=== PATIENT | male | born 1945 | race Caucasian/White ===

== ENCOUNTER → 2017-02-02 | Outpatient (CLI) | payer OTHER | LOC: BHFA 09:30 | PROVIDERS: ATTEND Internal Medicine Cardiovascular Disease | DX: R94.31 Abnormal electrocardiogram [ECG] [EKG] (principal); I25.10 Atherosclerotic heart disease of native coronary artery without angina pectoris ==

== ENCOUNTER 2017-02-03 08:03 | Day surgery (SDC) | payer OTHER ==
[2017-02-03] MEDS ORDERED: FAMOTIDINE 20 MG TAB PO ONE (08:05)
[2017-02-03] MEDS ORDERED: DIAZEPAM 5 MG TAB PO ONE (08:05)
[2017-02-03] MEDS ORDERED: diphenhydrAMINE 25 MG CAP PO ONE ×2 (08:05→08:42)
[2017-02-03] MEDS ORDERED: NS 1,000 ML IV ONE (08:05)
[2017-02-03] MEDS ORDERED: ASPIRIN EC 325 MG TAB PO ONE ×2 (08:05→08:43)
--- NOTE | 2017-02-03 08:27 | CPEKG ---
Heart Rate: 51 RR Interval: 1176 P-R Interval: 212 QRSD Interval: 116 QT Interval: 452 QTC Interval: 417 P [place]: 63 QRS [place]: -33 T Wave [place]: 69 EKG Severity - ABNORMAL ECG - EKG Impression: SINUS RHYTHM EKG Impression: NONSPECIFIC INTRAVENTRICULAR CONDUCTION DELAY EKG Impression: LEFT VENTRICULAR HYPERTROPHY EKG Impression: ANTERIOR Q WAVES, POSSIBLY DUE TO LVH EKG Impression: FIRST DEGREE AVB EKG Impression: THE IVCD IS NEW IN COMPARISON TO PRIOR ECG Electronically Signed By: Les Cabral 04-Feb-2017 09:00:29
[2017-02-03] MEDS ORDERED: DIAZEPAM 5 MG TAB ONE (08:43)
[2017-02-03] MEDS ORDERED: FAMOTIDINE 20 MG TAB ONE (08:43)
[2017-02-03 08:52] LABS: % IMMATURE GRANULYOCYTES 0.2 % (0.0-1.1); ABSOLUTE IMMATURE GRANULOCYTES 0.01 10^3/uL (0.00-0.10); ADD DIFF? NO; ADD MORPH? NO; ADD SCAN? NO; ATYPICAL LYMPHOCYTE FLAG 10 (0-99); FRAGMENT RBC FLAG 70 (0-99); HEMATOCRIT 30.2 % (40.0-51.0); HEMOGLOBIN 9.4 g/dL (13.7-17.5); LEFT SHIFT FLG 0 (0-99); LIPEMIA HEMOLYSIS FLAG 80 (0-99); MEAN CELL HEMOGLOBIN 23.2 pg (27.9-34.1); MEAN CELL HEMOGLOBIN CONCENTR. 31.1 g/dL (32.4-36.7); MEAN CELL VOLUME 74.4 fL (81.5-99.8); MEAN PLATELET VOLUME 10.9 fL (8.7-11.7); PLATELET CLUMPS FLAG 10 (0-99); PLATELET COUNT 336 10^3/uL (150-400); RED BLOOD CELL COUNT 4.06 10^6/uL (4.40-6.38); RED CELL DISTRIBUTION WIDTH 18.7 % (11.5-15.2)
[2017-02-03 09:10] LABS: INR 1.09 (0.83-1.16)
[2017-02-03] MEDS ORDERED: IOPAMIDOL (ISOVUE 370) 100 ML BTL IV ONE (09:15)
[2017-02-03] MEDS ORDERED: LIDOCAINE 1% 30 ML SDV ONE (09:15)
[2017-02-03] MEDS ORDERED: fentaNYL 100 MCG/2 ML INJ ONE (09:29)
[2017-02-03] MEDS ORDERED: MIDAZOLAM 2 MG/2 ML VIAL ONE (09:30)
[2017-02-03] MEDS ORDERED: VERAPAMIL 5 MG/2 ML VIAL ONE (09:47)
[2017-02-03] MEDS ORDERED: HEPARIN 10,000 UNIT/10 ML MDV ONE (09:47)
[2017-02-03 09:49] LABS: ANION GAP 9 mEq/L (8-16); CALCIUM 9.1 mg/dL (8.5-10.4); CARBON DIOXIDE 26 mEq/l (22-31); CHLORIDE 107 mEq/L (97-110); CHOLESTEROL 143 mg/dL (140-220); CHOLESTEROL/HDL RATIO 3.11 RATIO (1.00-4.97); GLOMERULAR FILTRATION RATE > 60; GLUCOSE 92 mg/dL (70-100); HIGH DENSITY LIPOPROTEIN 46 mg/dL (40-65); LOW DENSITY LIPOPROTEIN 83 mg/dL (80-100); NON-HIGH DENSITY LIPOPROTEIN 97 mg/dL (90-129); POTASSIUM 4.4 mEq/L (3.5-5.2); SODIUM 142 mEq/L (134-144); TRIGLYCERIDE 72 mg/dL (40-150); VERY LOW DENSITY LIPOPROTEINS 14 mg/dL (8-25)
[2017-02-03 09:58] LABS: % SATURATION 5 % (20-55); TOTAL IRON BINDING CAPACITY 422 ug/dL (260-490)
[2017-02-03 10:23] LABS: FERRITIN - BCH 5.7 ng/mL (17.9-464.0)
--- NOTE | 2017-02-03 10:27 | PDDXCAT ---
Diagnostic Cath Note - . Date: 02/03/17 Intervention: None *Procedure Indication: Progressive dyspnea on exertion (NYHA III symptoms), CCS III angina , no stress test, known coronary artery disease on the basis of a positive calcium score. Access: right radial artery (a plethysmography trace-assisted Kana's test was used to document dual artery supply to the hand and index finger prior to access ). Procedure: 1. selective coronary angiography 2. left heart catheterization 3. left ventriculogram *Materials Selective Coronary Angiography size: 5F Selective Coronary Materials: JL3.5, JR4.0, pigtail *Findings-Selective coronary angiography LM: The left main is ~6 mm in size and bifurcates into an LAD and circumflex system. There is no significant or flow limiting disease identified. LAD: The proximal LAD is ~3.25 mm in size. There are luminal irregularities in the proximal and mid LAD with maximal luminal stenosis of 15%. There is no evidence of flow-limiting coronary artery disease with MARIO III flow throughout. LCX: The proximal left circumflex is ~3 mm in size without evidence of flow- limiting coronary disease. There is non-flow limiting calcification consistent with atherosclerosis. RCA: The right coronary artery is dominant (gives rise to PDA and PLV branches) and ~3 mm in size. There is no evidence of flow-limiting coronary artery disease with MARIO III flow throughout. *Findings-Left Heart Catheterization LVEDP: 15 mmHg Ejection Fraction: 65% Wall motion analysis: There are no wall motion abnormalities identified on left ventriculogram. The visualized portion of the thoracic aorta revealed three sinuses of Valsalva and is the upper limits of normal in size. There was no evidence of nate aneurysm or dissection. Incidentally noted is a large rounded extracardiac mass. CT of the chest in January of 2016 revealed this is a hiatal hernia. *Summary Complications: None Estimated blood loss: <50ml Closure method: TR band arteriotomy repair Assessment: 1. [place] vessel non-flow limiting coronary artery disease with maximal luminal stenosis of 15% in the proximal and mid LAD. There was no flow-limiting disease with MARIO III flow throughout the right-dominant coronary system. 2. Normal ejection fraction of 65% with no wall motion abnormalities identified on left ventriculogram. 3. Incidentally noted on left ventriculogram is a large, round retro cardiac mass. CT of the chest performed in January of 2016 revealed a large hiatal hernia. There were also scattered non-calcified pulmonary nodules and follow up CT was recommended in 12 months (the patient has a history of smoking). I would like to repeat this study given the patient's progressive dyspnea on exertion. Patient Problems: Problems Problem Status Onset Bronchitis Acute Hypoxia Acute TIA (transient ischemic attack) Acute
[2017-02-03] MEDS ORDERED: HYDROCODONE/APAP 5/325 TAB PO PRN (10:58)
[2017-02-03] MEDS ORDERED: OXYCODONE/APAP 5/325 TAB PO PRN (10:58)
[2017-02-03] MEDS ORDERED: ONDANSETRON 4 MG/2 ML VIAL IVP PRN (10:58)
[2017-02-03] MEDS ORDERED: ATROPINE SULFATE 1 MG/10 ML SYR IVP PRN (10:58)
[2017-02-03] MEDS ORDERED: NITROGLYCERIN 0.4 MG BTL SL PRN (10:58)
== END 2017-02-03 14:00 | disposition home or self-care (01) ==
LOC: FCATH 08:03
PROVIDERS: ATTEND Internal Medicine Cardiovascular Disease
PROC: 4A023N7 Measurement of Cardiac Sampling and Pressure, Left Heart, Percutaneous Approach (ICD-10-PCS; principal; 2017-02-03)
PROC: B2151ZZ Fluoroscopy of Left Heart using Low Osmolar Contrast (ICD-10-PCS; principal; 2017-02-03)
PROC: B2111ZZ Fluoroscopy of Multiple Coronary Arteries using Low Osmolar Contrast (ICD-10-PCS; principal; 2017-02-03)
DX: R06.09 Other forms of dyspnea (principal); I25.10 Atherosclerotic heart disease of native coronary artery without angina pectoris; K44.9 Diaphragmatic hernia without obstruction or gangrene; D64.9 Anemia, unspecified; E03.9 Hypothyroidism, unspecified; Z87.891 Personal history of nicotine dependence
CPT/HCPCS: 71250; 93005; 93458; C1769; 84466-90; 84481-90; J1644; J2250; J3010; Q9967

== ENCOUNTER 2018-05-09 06:11 | Inpatient (IN) | payer OTHER ==
[~2018-05-09 06:11] MED LIST: LR 1,000 ML IV ONE; ceFAZolin 2 GM/SWFI 2 GM/20 ML SYR IVP ONE
[2018-05-09] MEDS ORDERED: CEFAZOLIN 2 GM/DEXTROSE/100 ML BAG IV ONE (06:12)
[2018-05-09] MEDS ORDERED: ceFAZolin 2 GM/DEXTROSE 100 ML IV ONE (06:30)
[2018-05-09] MEDS ORDERED: BUPIVACAINE 0.25% 30 ML SDV ONE (06:55)
[2018-05-09] MEDS ORDERED: HEPARIN 1000 UNIT/1 ML MDV ONE (06:55)
[2018-05-09] MEDS ORDERED: ceFAZolin 1 GM/5 ML SYR ONE (06:56)
--- NOTE | 2018-05-09 07:51 | PDANEPAE ---
ANE History of Present Illness Jrei Fundoplication ANE Past Medical History - Cardiovascular History Hx Hypertension: No Hx Arrhythmias: No Hx Chest Pain: No Hx Coronary Artery / Peripheral Vascular Disease: Yes Hx CHF / Valvular Disease: No Hx Palpitations: No Cardiovascular History Comment: cad. cardiac cath 02/03/17. seen at [facility] - Pulmonary History Hx COPD: No Hx Asthma/Reactive Airway Disease: No Hx Recent Upper Respiratory Infection: No Hx Oxygen in Use at Home: No Hx Sleep Apnea: No Sleep Apnea Screening Result - Last Documented: Negative - Neurologic History Hx Cerebrovascular Accident: No Hx Seizures: No Hx Dementia: No Neurologic History Comment: chronic back t12, l1-l2. from tree falling on him - Endocrine History Hx Diabetes: No Hypothyroid: No Obesity: no Endocrine History Comment: hypothyroidism- no medications currently - Renal History Hx Renal Disorders: Yes Renal History Comment: hx of bladder diverticulum - Liver History Hx Hepatic Disorders: No - Neurological & Psychiatric Hx Hx Neurological and Psychiatric Disorders: No - Cancer History Hx Cancer: No - Congenital Disorder History Hx Congenital Disorders: No - GI History Hx Gastrointestinal Disorders: Yes Gastrointestinal History Comment: reflux - Other Health History Other Health History: wears glasses - Chronic Pain History Chronic Pain: Yes (back, on oxycodone for 30 years) - Surgical History Prior Surgeries: cardiac cath 02/03/17. right inguinal hernia repair. bladder diverticulum repair ANE Review of Systems Review of Systems: - Exercise capacity METS (RN): 3 METS ANE Patient History - Allergies Allergies/Adverse Reactions: cat dander Allergy (Verified 05/08/18 12:35) - Home Medications Home Medications: Multivitamins [Multivitamin (*)] 07/16/15 [Last Taken 05/06/18] oxyCODONE IR [Oxycodone Ir (*)] 07/16/15 [Last Taken 05/09/18] Aspirin [Aspirin 325 mg (*)] 01/29/16 [Last Taken 05/03/18] Ranitidine HCl [Zantac] 02/02/16 [Last Taken 05/08/18] Ferrous Sulfate [Ferrous Sulf 325 MG (*)] 05/08/18 [Last Taken 05/08/18] Metoprolol Succinate PRN 05/09/18 [Last Taken 05/08/18] - NPO status NPO Since - Liquids (Date): 05/08/18 NPO Since - Liquids (Time): 22:00 NPO Since - Solids (Date): 05/08/18 NPO Since - Solids (Time): 19:00 - Anes Hx Anes Hx: no prior problems - Smoking Hx Smoking Status: Former smoker Marijuana use: Yes - Alcohol Use Alcohol Use: None - Family Anes Hx Family Anes Hx: none Family Hx Anesthesia Complications: none ANE Labs/Vital Signs - Vital Signs Blood Pressure: 148/77 Heart Rate: 45 Respiratory Rate: 14 O2 Sat (%): 93 Height: 182.88 cm Weight: 66.6 kg ANE Physical Exam - Airway Neck exam: FROM Mallampati Score: Class 1 Mouth exam: normal dental/mouth exam - Pulmonary Pulmonary: clear to auscultation - Cardiovascular Cardiovascular: regular rate and rhythym - ASA Status ASA Status: III ANE Anesthesia Plan Anesthesia Plan: general endotracheal anesthesia (Possible thoracic epidural analgesia, to be placed postop, if needed, discussed.)
--- NOTE | 2018-05-09 07:52 | PDHPUP ---
History & Physical Update H&P update statement: This history and physical update is based on an assessment of the patient which was completed after admission or registration (within 24 hours), but prior to the surgery/procedure. H&P update: H&P reviewed & patient examined, no change in patient's condition since H&P completed
[2018-05-09] MEDS ORDERED: MIDAZOLAM 2 MG/2 ML VIAL IVP ONE (08:00)
[2018-05-09] MEDS ORDERED: PROPOFOL 200 MG/20 ML VIAL ONE ×2 (08:06→08:30)
[2018-05-09] MEDS ORDERED: fentaNYL 250 MCG/5 ML INJ ONE (08:06)
[2018-05-09] MEDS ORDERED: DEXAMETHASONE 4 MG/ML VIAL ONE (08:07)
[2018-05-09] MEDS ORDERED: ROCURONIUM 50 MG/5 ML VIAL ONE (08:07)
[2018-05-09] MEDS ORDERED: RANITIDINE 50 MG/2 ML VIAL ONE (08:08)
[2018-05-09] MEDS ORDERED: ONDANSETRON 4 MG/2 ML VIAL ONE ×2 (10:00→10:39)
[2018-05-09] MEDS ORDERED: NALOXONE HCL 0.4 MG/ML INJ IVP PRN (10:02)
[2018-05-09] MEDS ORDERED: fentaNYL 100 MCG/2 ML INJ IVP PRN (10:02)
[2018-05-09] MEDS ORDERED: ONDANSETRON 4 MG/2 ML VIAL IVP PRN ×2 (10:02→10:21)
[2018-05-09] MEDS ORDERED: SUGAMMADEX SODIUM 200 MG/2 ML VIAL IVP ONE (10:10)
--- NOTE | 2018-05-09 10:20 | POSTOPPROG ---
Post Op Note Date of Operation: 05/09/18 Surgeon: Anmol Miguel [place] Operator: Nai Caraballo Anesthesiologist: Matthew Billings Anesthesia: GET(General Endotracheal) Pre-op Diagnosis: large hiatal hernia, SOB Post-op Diagnosis: same Procedure: lap hiatal hernia repair c Jeri fundo., mesh, and omental patch Findings: 2/3 of stomach in chest, large hernia, tearing of diaphragm requiring mesh Inf/Abcess present in the surg proc area at time of surgery?: No EBL: Minimal Complications: none Specimen(s): none
[2018-05-09] MEDS ORDERED: HYDROmorphONE/DILAUDID 1 MG/ML INJ IVP PRN (10:21)
[2018-05-09] MEDS ORDERED: fentaNYL 100 MCG/2 ML INJ ONE (10:26)
[2018-05-09] MEDS ORDERED: HYDROmorphONE/DILAUDID 1 MG/ML INJ ONE (10:26)
[2018-05-09] MEDS: HYDROmorphONE/DILAUDID 1 MG/ML INJ IVP PRN ×2 (10:28→11:00)
[2018-05-09] MEDS ORDERED: D5W 1/2 NS 1,000 ML IV SCH (10:30)
[2018-05-09] MEDS ORDERED: OXYCODONE/APAP 5/325 TAB ONE (11:04)
[2018-05-09] MEDS ORDERED: PROMETHAZINE HCL 25 MG/ML INJ ONE (11:12)
[2018-05-09] MEDS: PROMETHAZINE HCL 25 MG/ML INJ IVP PRN ×2 (11:15→11:28)
[2018-05-09] MEDS: FAMOTIDINE 20 MG/NACL 50 ML IV SCH ×2 (12:12→20:21)
--- NOTE | 2018-05-09 13:09 | POSTANESTH ---
Post Anesthetic Evaluation Cardiovascular Status: Similar to Pre-Op Cond Respiratory Status: Normal, Stable, Other, See Comment Level of Consciousness/Mental Status: Can Participate in Eval Pain Control: Adequate, Prn Tx Ordered Nausea/Vomiting Control: Adequate, Prn Tx Ordered Complications Possibly Related to Anesthesia: None Noted (Pt. with SQ emphysema , but breathing without difficulty.)
--- NOTE | 2018-05-09 13:11 | CPEKG ---
Heart Rate: 57 RR Interval: 1053 P-R Interval: 232 QRSD Interval: 132 QT Interval: 420 QTC Interval: 409 P [place]: 55 QRS [place]: -33 T Wave [place]: 135 EKG Severity - ABNORMAL ECG - EKG Impression: SINUS RHYTHM EKG Impression: FIRST DEGREE AV BLOCK EKG Impression: PROBABLE LEFT ATRIAL ABNORMALITY EKG Impression: LEFT BUNDLE BRANCH BLOCK Electronically Signed By: Kavon Jackson 09-May-2018 16:26:56
--- NOTE | 2018-05-09 16:20 | ASMTCASEMG ---
Living Arrangements What is your living Answers: Alone arrangement? Who do you live with? Type Of Residence What kind of residence do Answers: House you live in? Discharge Plan Comments Coordination Status Comments Notes: Patient is a 72yo single male who was admitted for surgery to correct a partially obstructed large hiatel hernia which creates shortness of breath. Patient has 2 addresses listed, one in [place] and a [address] in [place]. Patient does have 2 children. No therapies ordered at this time. D/C plan TBD. CM will follow. Date Signed: 05/09/2018 04:19 PM Electronically Signed By:Karyna Pedersen LCSW
--- NOTE | 2018-05-09 16:31 | SOAPPROG ---
SOAP Progress Note Assessment/Plan: Assessment/Plan: 72 Y M s/p lap hiatal hernia repair with annette fundoplication , mesh, and omental patch, POD#0. AFVSS. Pain controlled. Wounds intact. Tolerating clears. Dysphagia diet in am. Urinary retention. Acute on chronic problem. Patient has hx of bladder diverticulum and urinary issues after trauma followed by urology. 50cc uop. Bladder scan 268cc. Ok for pt to self catheterize if bladder scan >400cc. Dispo: pending. 05/09/18 16:29 Objective: Vital Signs Temp Pulse Resp BP Pulse Ox 36.7 C 67 20 145/73 H 97 05/09/18 16:00 05/09/18 16:00 05/09/18 16:00 05/09/18 16:00 05/09/18 16:00 05/08/18 05/09/18 05/10/18 05:59 05:59 05:59 Intake Total 1110 Output Total 50 Balance 1060 ICD10 Worksheet Patient Problems: Problems Problem Status Onset Bronchitis Acute Hypoxia Acute TIA (transient ischemic attack) Acute
[2018-05-09] MEDS: OXYCODONE/APAP 5/325 TAB PO PRN ×2 (16:58→17:49)
[2018-05-09] MEDS: CALCIUM CARBONATE 500 MG CHEWABLE TAB PO PRN (17:50)
[2018-05-09] MEDS: DOCUSATE SODIUM 100 MG CAP PO SCH (20:21)
[2018-05-10] MEDS: OXYCODONE/APAP 5/325 TAB PO PRN ×3 (05:12→19:49)
[2018-05-10] MEDS ORDERED: ASPIRIN 325 MG TAB PO PRN (07:40)
[2018-05-10] MEDS ORDERED: METOPROLOL TARTRATE 25 MG TAB PO PRN (07:40)
[2018-05-10] MEDS ORDERED: oxyCODONE IR 5 MG TAB PO PRN (07:40)
[2018-05-10] MEDS: DOCUSATE SODIUM 100 MG CAP PO SCH ×2 (08:41→19:49)
[2018-05-10] MEDS: FERROUS SULFATE 325 MG TAB PO SCH (08:41)
[2018-05-10] MEDS: CEPACOL LOZENGE PO PRN ×2 (09:28→15:53)
[2018-05-10] MEDS: MULTIVITAMINS 1 EACH TAB PO SCH (09:30)
--- NOTE | 2018-05-10 09:32 | SOAPPROG ---
SOAP Progress Note Assessment/Plan: Assessment/Plan: 72 Y M s/p lap hiatal hernia repair with annette fundoplication , mesh, and omental patch, POD#1. Soft diet. ST consult for dysphagia. Continue routine post op care. Dispo: pending. possibly later today, more likely tomorrow. S: sore throat. feels like it is difficult to drink water. O: alert, nad mmm ctab anteriorly rrr abd soft, inc cdi 05/10/18 09:31 Objective: Vital Signs Temp Pulse Resp BP Pulse Ox 36.8 C 66 16 120/67 90 L 05/10/18 07:56 05/10/18 07:56 05/10/18 07:56 05/10/18 07:56 05/10/18 07:56 Laboratory Results 05/10/18 04:15 05/10/18 04:15 05/09/18 05/10/18 05/11/18 05:59 05:59 05:59 Intake Total 2385 450 Output Total 1075 Balance 1310 450 ICD10 Worksheet Patient Problems: Problems Problem Status Onset Bronchitis Acute Hypoxia Acute TIA (transient ischemic attack) Acute
[2018-05-10] MEDS ORDERED: METOCLOPRAMIDE 10 MG/2 ML VIAL IVP SCH (11:15)
[2018-05-10] MEDS ORDERED: KETOROLAC 15 MG/1 ML SDV IVP SCH (11:15)
[2018-05-10] MEDS: CALCIUM CARBONATE 500 MG CHEWABLE TAB PO PRN ×2 (15:53→19:58)
--- NOTE | 2018-05-10 16:59 | ASMTCMCOM ---
CM Note CM Note Notes: Spoke w/PA, pt should dc independent when medically stable, he ambulates independently. Pt cleared by SENIOR DIRECTOR INSIGHT for swallowing issues. CM available for any changes. DC Plan: Independent Date Signed: 05/10/2018 04:58 PM Electronically Signed By:Paulette Kennedy RN
[2018-05-10] MEDS: KETOROLAC 15 MG/1 ML SDV IVP SCH ×2 (17:54→23:58)
[2018-05-10] MEDS: METOCLOPRAMIDE 10 MG/2 ML VIAL IVP SCH ×2 (17:54→17:59)
[2018-05-10] MEDS: FAMOTIDINE 20 MG TAB PO SCH (19:49)
[2018-05-11] MEDS: METOCLOPRAMIDE 10 MG/2 ML VIAL IVP SCH ×4 (04:56→17:51)
[2018-05-11] MEDS: KETOROLAC 15 MG/1 ML SDV IVP SCH ×4 (04:56→18:29)
[2018-05-11] MEDS: DOCUSATE SODIUM 100 MG CAP PO SCH ×2 (07:56→20:33)
[2018-05-11] MEDS: OXYCODONE/APAP 5/325 TAB PO PRN ×2 (07:58→18:28)
[2018-05-11] MEDS: MULTIVITAMINS 1 EACH TAB PO SCH (07:59)
[2018-05-11] MEDS: FERROUS SULFATE 325 MG TAB PO SCH (07:59)
[2018-05-11] MEDS: ENOXAPARIN 40 MG/0.4 ML SYR SC SCH (07:59)
--- NOTE | 2018-05-11 11:01 | SOAPPROG ---
SOAP Progress Note Assessment/Plan: Assessment: 72 y/o M s/p Jeri fundoplication POD #2 S: Pain is 6/10, but does not want to take anything for it. Reports that he is having trouble swallowing. Can only take 1/2 tsp of soft food at a time and then has to get up and walk to help it go down. Passing flatus, but denies passing stool yet. O: Alert Afebrile RRR No increased WOB Abdomen: soft, appropriately tender to palpation, incisions are cdi, normoactive bowel sounds Plan: Will order esophagram for his dysphagia. 05/11/18 10:58 Objective: Vital Signs Temp Pulse Resp BP Pulse Ox 37.9 C 58 L 18 181/92 H 94 05/11/18 08:00 05/11/18 08:00 05/11/18 08:00 05/11/18 08:00 05/11/18 08:00 Laboratory Results 05/10/18 04:15 05/10/18 04:15 05/10/18 05/11/18 05/12/18 05:59 05:59 05:59 Intake Total 2385 1660 Output Total 1075 Balance 1310 1660 ICD10 Worksheet Patient Problems: Problems Problem Status Onset Bronchitis Acute Hypoxia Acute TIA (transient ischemic attack) Acute
--- NOTE | 2018-05-11 12:29 | PDMN ---
Medical Necessity Medical necessity: Change to IP, as of 05/11/18, per OBIEE [employer]IA SOLUTION ARCHITECT; los >2 mn s/p Jeri Fundoplication POD #2 w/dysphagia; admit for Esophagram, further monitoring & IVFs; per progress note & order 05/11/18
[2018-05-11] MEDS: CALCIUM CARBONATE 500 MG CHEWABLE TAB PO PRN (13:57)
--- NOTE | 2018-05-11 18:39 | SOAPPROG ---
SOAP Progress Note Assessment/Plan: Assessment: Complains of significant dysphagia all a patient can burp regularly He has been refusing his Reglan and Toradol Wound okay Esophagram shows a snug wrap but passage of the barium through all the patient only took 1 small sips of barium Plan: Observation/hopefully swelling and dysphagia will resolve/endoscopy and/ or laparoscopy if not improving 05/11/18 18:37 Objective: Vital Signs Temp Pulse Resp BP Pulse Ox 36.8 C 61 17 141/78 H 93 05/11/18 16:00 05/11/18 16:00 05/11/18 16:00 05/11/18 16:00 05/11/18 16:00 Laboratory Results 05/10/18 04:15 05/10/18 04:15 05/10/18 05/11/18 05/12/18 05:59 05:59 05:59 Intake Total 2385 1660 500 Output Total 1075 Balance 1310 1660 500 ICD10 Worksheet Patient Problems: Problems Problem Status Onset Bronchitis Acute Hypoxia Acute TIA (transient ischemic attack) Acute
[2018-05-11] MEDS: FAMOTIDINE 20 MG TAB PO SCH (20:33)
[2018-05-12] MEDS: METOCLOPRAMIDE 10 MG/2 ML VIAL IVP SCH ×3 (00:06→07:45)
[2018-05-12] MEDS: KETOROLAC 15 MG/1 ML SDV IVP SCH ×3 (00:06→10:48)
[2018-05-12] MEDS: CALCIUM CARBONATE 500 MG CHEWABLE TAB PO PRN (06:28)
[2018-05-12] MEDS: DOCUSATE SODIUM 100 MG CAP PO SCH (07:45)
[2018-05-12] MEDS: MULTIVITAMINS 1 EACH TAB PO SCH (07:48)
[2018-05-12] MEDS: FERROUS SULFATE 325 MG TAB PO SCH (07:48)
[2018-05-12] MEDS: ENOXAPARIN 40 MG/0.4 ML SYR SC SCH (07:48)
--- NOTE | 2018-05-12 10:16 | SOAPPROG ---
NITHIN Progress Note Assessment/Plan: Assessment: 72 y/o M s/p Annette fundoplication POD #2 S: Pain is 6/10, but does not want to take anything for it. Reports that he is having trouble swallowing. Can only take 1/2 tsp of soft food at a time and then has to get up and walk to help it go down. Passing flatus, but denies passing stool yet. O: Alert Afebrile RRR No increased WOB Abdomen: soft, appropriately tender to palpation, incisions are cdi, normoactive bowel sounds Plan: Will order esophagram for his dysphagia. 05/11/18 10:58 Pt seen and evaluated with Dr. Miguel. Pt is much improved today. Reports he is able to swallow with less difficulty. Would like to go home today. Esophagram showed mild narrowing at GE junction. Original plan for today was to take pt back to surgery to revise annette, but given pt's improvement, will hold off. He may have esophageal dysmotility causing his dysphagia. Would have been caught on an upper GI, but Pt refused test during his preop work up. Will add reglan. If he tolerates soft diet today, can go home later. 05/12/18 10:17 Objective: Vital Signs Temp Pulse Resp BP Pulse Ox 36.5 C 58 L 16 126/68 H 94 05/12/18 07:13 05/12/18 07:13 05/12/18 07:13 05/12/18 07:13 05/12/18 07:13 Laboratory Results 05/10/18 04:15 05/10/18 04:15 05/11/18 05/12/18 05/13/18 05:59 05:59 05:59 Intake Total 1660 750 Balance 1660 750 ICD10 Worksheet Patient Problems: Problems Problem Status Onset Bronchitis Acute Hypoxia Acute TIA (transient ischemic attack) Acute
--- NOTE | 2018-05-12 12:23 | ASMTCMCOM ---
CM Note CM Note Notes: Spoke w/RN, plan remains the same, pt will dc independent when medically stable. CM available for any changes. DC Plan: Independent Date Signed: 05/12/2018 12:22 PM Electronically Signed By:Paulette Kennedy RN
[2018-05-12 13:36] VITALS: BP 122/69
--- NOTE | 2018-05-13 21:41 | GOP ---
[f rep st] OPERATIVE REPORT DATE OF OPERATION: SURGEON: Anmol Miguel MD OCULAR CARE AIDE: Lori Ellis NP. PREOPERATIVE DIAGNOSIS: Giant hiatal hernia and esophageal reflux. POSTOPERATIVE DIAGNOSIS: Giant hiatal hernia and esophageal reflux. PROCEDURE PERFORMED: Laparoscopic Jeri with hiatal hernia repair with mesh and omental pedicle fla p. FINDINGS: The patient had a very large hiatus. He had the majority of his stomach up in the chest, but was able to be reduced easily. The hiatal defect, however, required mesh because it could not be closed directly without excess tension. DESCRIPTION OF PROCEDURE: The patient was taken to the operating room where he received satisfactory general endotracheal anesthesia. Placed in the supine position in a split-leg fashion, prepped and draped in the usual sterile fashion. A periumbilical incision was made. A Veress needle inserted. Pneumoperitoneum was established. Trocar was introduced. Laparoscope introduced. Good visualizatio n was obtained. Four other trocars were placed in the upper abdomen under direct vision. The hiatus was exposed. The stomach was relatively easily reduced back down into the abdomen and in the chest. The diaphragmatic crura were both dissected free and exposed completely. A retroesophageal tunnel was created on the greater curvature of the stomach. The short gastrics were divided with the Hernandes ic Scalpel until there was free mobility of the fundus. The hiatus was closed with interrupted 0 Eth ibond sutures. However, several of the sutures tore free because of excess tension, and it was elect ed at that point to place a mesh over the lateral portion of the hiatus to reinforce the suture line. Some Bard polypropylene mesh was inserted, trimmed to the appropriate size. It was then anchored i n place to both juan of the diaphragm with a ProTack as well as some interrupted 0 Ethibond sutures i n order to protect the esophagus from the mesh. A ventral pedicle flap was created with the Harmonic Scalpel off the transverse colon. After adequate length was achieved this was rotated up into the e sophageal hiatus. It was again anchored in place to cover up the mesh using the ProTack and 0 Eth[address] sutures. A 52 bougie was placed in the esophagus and the fundoplication wrap was then created wit h interrupted 0 Ethibond sutures securing the anterior wall of the stomach to the anterior wall of th e esophagus to the fundoplication wrap, and at least 1 suture was secured to the anterior juan. This created a good loose floppy wrap. Bougie was removed. Hemostasis was assured. Trocars were removed under direct vision. Trocar sites were closed with 0 Vicryl for the fascia and 4-0 Monocryl subcuti cular stitch for the skin. All wounds were infiltrated with 0.5% Marcaine. He tolerated the procedu re well, was taken to the recovery room in good condition. There were no complications. /[id number]/MODL
== END 2018-05-12 15:30 | disposition home or self-care (01) | DRG 328 ==
LOC: F3N 06:11 → F3E 11:40 → OBSVTOIN 05-11 12:16
PROVIDERS: ADMIT Surgery; ATTEND Surgery
PROC: 0DV44CZ Restriction of Esophagogastric Junction with Extraluminal Device, Percutaneous Endoscopic Approach (ICD-10-PCS; principal; 2018-05-09 08:00)
DX: K44.9 Diaphragmatic hernia without obstruction or gangrene (principal); R13.19 Other dysphagia; K21.9 Gastro-esophageal reflux disease without esophagitis; I25.10 Atherosclerotic heart disease of native coronary artery without angina pectoris; D50.9 Iron deficiency anemia, unspecified; R33.8 Other retention of urine; E03.9 Hypothyroidism, unspecified
CPT/HCPCS: 92610-GN; C1781; G8996-GN-CI; G8997-GN-CI; G8998-GN-CI; J0690; J1100; J1170; J1650; J1885; J2250; J2405; J2550; J2704; J2765; J2780; J3010

== ENCOUNTER 2018-05-25 16:29 | Observation (INO) | payer OTHER ==
--- NOTE | 2018-05-25 16:48 | EDPHY ---
H & P Time Seen by Provider: 05/25/18 16:47 HPI/ROS: CHIEF COMPLAINT: Nausea vomiting abdominal pain HISTORY OF PRESENT ILLNESS: Patient had laparoscopic Jeri surgery with hiatal hernia repair on 05/09/[address] Anmol Miguel. He was doing well until last night when he had some steak and around 9:00 p.m. Started feeling some discomfort in his upper left abdomen. That was associated with nausea and multiple episodes of vomiting but no diarrhea. He really has not been able to eat or drink anything today because oral intake makes him feel worse. The abdominal pain is in the left center upper portion of his abdomen, does not radiate, worse with eating or drinking. Denies hematemesis or coffee-ground emesis. Symptoms continued since the onset yesterday. Moderate to severe today , feels dehydrated REVIEW OF SYSTEMS: Eye: no change in vision ENT: no sore throat Cardiac: no chest pain or syncope Pulmonary: no cough or SOB Abdomen: HPI Musculoskeletal: no back pain Skin: no rash Neuro: no headache Constitutional: no fever : no urinary symptoms A comprehensive 10 point review of systems is otherwise negative aside from elements mentioned in the history of present illness. PAST MEDICAL HISTORY: Surgical as above, tonsillectomy and appendectomy, bladder repair, inguinal hernia. Social history: Here with his neighbor General Appearance: Alert and conversant, cooperative. Eyes: No scleral icterus. ENT, Mouth: Dry mucous membranes Respiratory: Normal respiratory effort, breath sounds equal, lungs are clear to auscultation. Cardiovascular: Regular rate and rhythm. Gastrointestinal: Left upper and midline abdominal tenderness without rebound or guarding. Incisions clean dry and intact. Neurological: Alert, face symmetric, normal motor and sensory in extremities. Skin: Warm and dry, no rashes. Musculoskeletal: No peripheral edema. Psychiatric: Not agitated. Emergency Department course/MDM: Normal saline 1 L IV, Zofran 4 mg IV, i-STAT and CT scanning discussed and consented. 1810: CT per Finer shows A/F level distal esophagus; distended stomach. Omental patch pressing on pylorus. 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 1814: Dr. Miguel discussed, admit to his service. Results as interpreted by the radiologist discussed with the patient, 2nd L IV normal saline hung, NPO. Increasing anxiety, given 1 mg IV Ativan. Smoking Status: Former smoker Constitutional: Initial Vital Signs Temperature (C) 36.7 C 05/25/18 16:34 Heart Rate 74 05/25/18 16:34 Respiratory Rate 16 05/25/18 16:34 Blood Pressure 135/83 H 05/25/18 16:34 O2 Sat (%) 92 05/25/18 16:34 O2 Delivery Mode Room Air Allergies/Adverse Reactions: cat dander Allergy (Verified 05/25/18 16:32) Home Medications: Medication Instructions Recorded Multivitamins [Multivitamin (*)] 1 ea PO DAILY 07/16/15 oxyCODONE IR [Oxycodone Ir (*)] 3.75 mg PO Q2H PRN 07/16/15 Aspirin [Aspirin 325 mg (*)] 325 mg PO Q6H PRN 01/29/16 Ferrous Sulfate [Ferrous Sulf 325 325 mg PO DAILY 05/08/18 MG (*)] oxyCODONE/APAP 5/325 [Percocet 1 - 2 tab PO Q4 PRN #30 tab 05/10/18 5/325 (*)] Medical Decision Making - Diagnostics Imaging Results: Imaging Impressions Abdomen CT 05/25/18 17:19 Impression: 1. Mildly distended distal esophagus with air-fluid level present and postoperative changes from recent Jeri fundoplication procedure. 2. Gastric distention to the level of the pylorus but appears to be narrowed from extrinsic compression from band of omentum pulled up to the diaphragmatic hiatus and GE junction. 3. 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 This could be related to compression from gastric distention upon adjacent splenic vessels in this thin patient. 4. Faint densities in the gallbladder suspicious for small gallstones. Findings discussed with Cesar Monk M.D. at 18:10 hour, 05/25/2018. Imaging: Discussed imaging studies w/ spray gun operator Radiologist Differential Diagnosis: Differential considered including but not limited to bowel obstruction, postsurgical abscess, gastroenteritis, volvulus, intra-abdominal hemorrhage or perforation. - Data Points Laboratory Results: Laboratory Results 05/25/18 17:10 05/25/18 17:10 05/25/18 05/25/18 05/25/18 17:18 17:10 17:10 WBC 8.95 10^3/uL 10^3/uL (3.80-9.50) RBC 5.18 10^6/uL 10^6/uL (4.40-6.38) Hgb 15.2 g/dL g/dL (13.7-17.5) POC Hgb 16.7 gm/dL gm/dL (13.7-17.5) Hct 44.5 % % (40.0-51.0) POC Hct 49 % % (40-51) MCV 85.9 fL fL (81.5-99.8) MCH 29.3 pg pg (27.9-34.1) MCHC 34.2 g/dL g/dL (32.4-36.7) RDW 15.7 % H % (11.5-15.2) Plt Count 352 10^3/uL 10^3/uL (150-400) MPV 10.2 fL fL (8.7-11.7) Neut % (Auto) 84.3 % H % (39.3-74.2) Lymph % (Auto) 11.2 % L % (15.0-45.0) White % (Auto) 3.7 % L % (4.5-13.0) Eos % (Auto) 0.0 % L % (0.6-7.6) Baso % (Auto) 0.1 % L % (0.3-1.7) Nucleat RBC Rel Count 0.0 % % (0.0-0.2) Absolute Neuts (auto) 7.55 10^3/uL H 10^3/uL (1.70-6.50) Absolute Lymphs (auto) 1.00 10^3/uL 10^3/uL (1.00-3.00) Absolute Monos (auto) 0.33 10^3/uL 10^3/uL (0.30-0.80) Absolute Eos (auto) 0.00 10^3/uL L 10^3/uL (0.03-0.40) Absolute Basos (auto) 0.01 10^3/uL L 10^3/uL (0.02-0.10) Absolute Nucleated RBC 0.00 10^3/uL 10^3/uL (0-0.01) Immature Gran % 0.7 % % (0.0-1.1) Immature Gran # 0.06 10^3/uL 10^3/uL (0.00-0.10) POC Sodium 138 mEq/L mEq/L (135-145) Sodium 138 mEq/L mEq/L (135-145) POC Potassium 3.9 mEq/L mEq/L (3.3-5.0) Potassium 4.2 mEq/L mEq/L (3.3-5.0) POC Chloride 100 mEq/L mEq/L (97-110) Chloride 100 mEq/L mEq/L (97-110) Carbon Dioxide 24 mEq/l mEq/l (22-31) Anion Gap 14 mEq/L mEq/L (8-16) POC BUN 19 mg/dL mg/dL (7-23) BUN 19 mg/dL mg/dL (7-23) Creatinine 0.8 mg/dL mg/dL (0.7-1.3) POC Creatinine 0.8 mg/dL mg/dL (0.7-1.3) Estimated GFR > 60 Glucose 158 mg/dL H mg/dL (70-100) POC Glucose 164 mg/dL H mg/dL (70-100) Calcium 10.2 mg/dL mg/dL (8.5-10.4) Total Bilirubin 0.7 mg/dL mg/dL (0.1-1.4) Conjugated Bilirubin 0.4 mg/dL mg/dL (0.0-0.5) Unconjugated Bilirubin 0.3 mg/dL mg/dL (0.0-1.1) AST 21 IU/L IU/L (17-59) ALT 31 IU/L IU/L (21-72) Alkaline Phosphatase 64 IU/L IU/L (38-126) Total Protein 7.6 g/dL g/dL (6.3-8.2) Albumin 4.2 g/dL g/dL (3.5-5.0) Lipase 61 IU/L IU/L (23-300) Medications Given: Discontinued Medications Fentanyl (Sublimaze) 100 mcg IVP EDNOW ONE Stop: 05/25/18 17:00 Last Admin: 05/25/18 17:12 Dose: 100 mcg Sodium Chloride (Ns) 1,000 mls @ 0 mls/hr IV EDNOW ONE; Wide Open PRN Reason: Protocol Stop: 05/25/18 17:00 Last Admin: 05/25/18 17:12 Dose: 1,000 mls Sodium Chloride (Ns) 1,000 mls @ 0 mls/hr IV EDNOW ONE; Wide Open PRN Reason: Protocol Stop: 05/25/18 18:20 Last Admin: 05/25/18 18:35 Dose: 1,000 mls Lorazepam (Ativan Injection) 1 mg IVP ONCE ONE Stop: 05/25/18 19:28 Last Admin: 05/25/18 19:33 Dose: 1 mg Ondansetron HCl (Zofran) 4 mg IVP EDNOW ONE Stop: 05/25/18 17:00 Last Admin: 05/25/18 17:12 Dose: 4 mg Ondansetron HCl (Zofran) 4 mg IVP ONCE ONE Stop: 05/25/18 19:26 Last Admin: 05/25/18 19:32 Dose: 4 mg Point of Care Test Results: Chemistry 05/25/18 17:18 POC Sodium 138 mEq/L mEq/L (135-145) POC Potassium 3.9 mEq/L mEq/L (3.3-5.0) POC Chloride 100 mEq/L mEq/L (97-110) POC BUN 19 mg/dL mg/dL (7-23) POC Creatinine 0.8 mg/dL mg/dL (0.7-1.3) POC Glucose 164 mg/dL H mg/dL (70-100) ISTAT H&H 05/25/18 17:18 POC Hgb 16.7 gm/dL gm/dL (13.7-17.5) POC Hct 49 % % (40-51) Departure - Departure Disposition: [facility] Inpatient Acute Clinical Impression: Gastric distention Nausea & vomiting Qualifiers: Vomiting type: unspecified Vomiting Intractability: non-intractable Qualified Code(s): R11.2 - Nausea with vomiting, unspecified Condition: Good
[2018-05-25] MEDS ORDERED: fentaNYL 100 MCG/2 ML INJ IVP ONE (16:59)
[2018-05-25] MEDS ORDERED: NS 1,000 ML IV ONE ×2 (16:59→18:19)
[2018-05-25] MEDS ORDERED: ONDANSETRON 4 MG/2 ML VIAL IVP ONE ×2 (16:59→19:25)
[2018-05-25 17:19] LABS: PLATELET COUNT 352 10^3/uL (150-400)
[2018-05-25] MEDS ORDERED: IOPAMIDOL (ISOVUE-300) 100 ML BTL ONE (17:24)
[2018-05-25] MEDS ORDERED: LORazepam 2 MG/ML INJ IVP ONE (19:27)
[2018-05-25] MEDS ORDERED: ONDANSETRON 4 MG/2 ML VIAL ONE (19:29)
[2018-05-25] MEDS ORDERED: LORazepam 2 MG/ML INJ ONE (19:29)
--- NOTE | 2018-05-25 21:31 | SOAPPROG ---
SOAP Progress Note Assessment/Plan: Assessment: 72-YEAR-OLD MALE 2 WEEKS STATUS POST ZACHARIAH FUNDOPLICATION PRESENTS WITH GASTRIC DISTENTION. HE HAS BEEN DOING WELL UNTIL LAST NIGHT WHEN SHE BE BEGAN RETCHING AND FELT DISTENDED IN HIS LEFT UPPER QUADRANT. NO FEVER. NO DIFFICULTIES WITH SWALLOWING. NO ACTUAL VOMITING. HE IS ABLE TO BELCH. CT SCAN SUGGEST PARTIAL EXTERNAL COMPRESSION OF THE DISTAL STOMACH SECONDARY TO THE OMENTAL PEDICLE FLAP USE TO COVER THE MESH IT IS DIAPHRAGM. HEENT NONICTERIC WITHOUT ADENOPATHY/CHEST CLEAR/COR REGULAR RHYTHM/EXTREMITIES BENIGN ABDOMEN SLIGHTLY DISTENDED AND TYMPANITIC IN THE LEFT UPPER QUADRANT BUT NONTENDER WITH NORMAL BOWEL SOUNDS IMPRESSION : QUESTIONABLE GASTRIC EMPTYING OF RELATIVELY ACUTE ONSET Plan: FOLLOW-UP 2 WAY AND/OR POSSIBLE ESOPHAGRAM IN THE A.M./LAPAROSCOPY IF OBSTRUCTION DEFINE 05/25/18 21:27 Objective: Vital Signs Temp Pulse Resp BP Pulse Ox 37.7 C 71 16 150/75 H 91 L 05/25/18 20:17 05/25/18 20:17 05/25/18 20:17 05/25/18 20:17 05/25/18 20:17 05/24/18 05/25/18 05/26/18 05:59 05:59 05:59 Intake Total 1999 Balance 1999 ICD10 Worksheet Patient Problems: Problems Problem Status Onset Gastric distention Acute Nausea & vomiting Acute Bronchitis Acute Hypoxia Acute TIA (transient ischemic attack) Acute
[2018-05-25] MEDS ORDERED: HYDROmorphONE/DILAUDID 1 MG/ML INJ IVP PRN (21:33)
[2018-05-25] MEDS ORDERED: ONDANSETRON 4 MG/2 ML VIAL IVP PRN (21:33)
[2018-05-25] MEDS ORDERED: FAMOTIDINE 20 MG/2 ML SDV IVP SCH (21:45)
[2018-05-25] MEDS: FAMOTIDINE 20 MG/NACL 50 ML IV SCH (22:18)
[2018-05-25] MEDS: D5W 1/2 NS W/ 20 KCl/L 1,000 ML IV SCH (22:18)
[2018-05-25] MEDS: METOCLOPRAMIDE 10 MG/2 ML VIAL IVP SCH (23:27)
[2018-05-26] MEDS: D5W 1/2 NS W/ 20 KCl/L 1,000 ML IV SCH ×2 (04:53→13:17)
[2018-05-26] MEDS: METOCLOPRAMIDE 10 MG/2 ML VIAL IVP SCH ×2 (05:19→13:17)
[2018-05-26] MEDS: FAMOTIDINE 20 MG/NACL 50 ML IV SCH (08:33)
[2018-05-26 12:20] VITALS: BP 106/56
--- NOTE | 2018-05-26 15:57 | ASMTCMCOM ---
CM Note CM Note Notes: CM reviewed Pt's chart for D/C planning. Pt is a 72 y/o male 2 weeks status post Jeri Fundoplication who presented with gastric distension at the ED. A CT suggested partial external compression of the distal stomach. Pt has a son Sergey who lives in [place], # [phone]. His daughter's # is [phone] and [phone], CM needs still to be indentified. D/C Plan: TBD D/C Plan: TBD Date Signed: 05/26/2018 03:56 PM Electronically Signed By:Naheed Gruber
--- NOTE | 2018-06-15 18:30 | GDS ---
[f rep st] DISCHARGE SUMMARY DISCHARGE DIAGNOSES: 1. Nausea and vomiting. 2. Gastric distention. CONSULTATIONS: General Surgery, Dr. Miguel. SPECIAL TESTS: Abdominal CT scan which revealed a mildly distended distal esophagus with air-fluid l evel present and postoperative changes from recent Jeri fundoplication procedure. It also revealed gastric distention to the level of the pylorus, which appeared to be narrowed from extrinsic gurjit bentley from band of omentum pulled up to the diaphragm, diaphragmatic hiatus and GE junction. He also had an abdominal x-ray which revealed decreased gaseous distention of the stomach and a moder ate adynamic ileus. HOSPITAL COURSE: This is a 72-year-old male who was recently status post left Jeri fundoplication by Dr. Miguel, who presented to the emergency room after feeling pain in his left upper abdomen that w as associated with nausea and multiple episodes of vomiting. This episode was brought on by eating s teak around [address] scan revealed gastric distention consistent with a possible obstruction. The patient wa s admitted for observation and placed on a clear liquid diet. The following day, his symptoms dramat ically improved and he was able to tolerate both clears and a regular diet. He began to pass gas and have bowel movements. At the time of discharge, he had no nausea or vomiting and his abdominal bloa ting was much improved. He was discharged home in good condition and asked to follow up in Dr. Miguel ' office in 1 week. DISCHARGE MEDICATIONS: For a complete and accurate medication list, please see DINA. /[id number]/MODL
== END 2018-05-26 15:10 | disposition home or self-care (01) ==
LOC: F1N 19:47
PROVIDERS: ADMIT Surgery; ATTEND Surgery
DX: R11.2 Nausea with vomiting, unspecified (principal); R14.0 Abdominal distension (gaseous); E86.9 Volume depletion, unspecified; R10.9 Unspecified abdominal pain; Z87.891 Personal history of nicotine dependence; Z98.890 Other specified postprocedural states
CPT/HCPCS: 74019; 74177; 74220; G0378; J2060; J2405; J2765; J3010; Q9967; 82435-PO; 82565-PO; 82947-PO; 84132-PO; 84295-PO; 84520-PO; 85014-PO; 96374

== ENCOUNTER → 2019-05-07 | Outpatient (CLI) | payer OTHER | LOC: FIMAGING 14:10 ==